=== PATIENT | female | born 1965 | race Caucasian/White ===

== ENCOUNTER 2019-03-16 13:48 | Day surgery (SDC) | payer OTHER ==
[~2019-03-16] VITALS: Ht 154.9 cm; Wt 138.2 kg
[~2019-03-16 13:48] MED LIST: LIDOCAINE/PF 2% 5 ML VIAL INJ ONE; PROPOFOL 1% 20 ML VIAL IVP ONE; SODIUM CHLORIDE 0.9% 1,000 ML IV ONE
== END 2019-03-16 16:45 | disposition home or self-care (01) ==
LOC: SURGERY 13:48
PROVIDERS: ATTEND Internal Medicine Gastroenterology
DX: Z12.11 Encounter for screening for malignant neoplasm of colon (principal); D12.5 Benign neoplasm of sigmoid colon; D12.2 Benign neoplasm of ascending colon; K57.30 Diverticulosis of large intestine without perforation or abscess without bleeding; K64.0 First degree hemorrhoids; E66.01 Morbid (severe) obesity due to excess calories; Z68.43 Body mass index [BMI] 50.0-59.9, adult; E03.9 Hypothyroidism, unspecified; Z79.899 Other long term (current) drug therapy; Z80.0 Family history of malignant neoplasm of digestive organs
CPT/HCPCS: 45385; 88305; C1769; J2704; J3490; J7030

== ENCOUNTER 2022-03-10 16:54 | Emergency (ER) | payer OTHER ==
[~2022-03-10] VITALS: Ht 160 cm; Wt 84.5 kg
[2022-03-10] MEDS ORDERED: KETOROLAC TROMETHAMINE 30 MG/ML VIAL IM ONE (19:00)
[2022-03-10 21:30] VITALS: BP 129/74
== END 2022-03-10 23:08 | disposition home or self-care (01) ==
LOC: EMS 16:55
DX: M79.621 Pain in right upper arm (principal); R07.89 Other chest pain; Z98.890 Other specified postprocedural states
CPT/HCPCS: 99284; 71045; 73060; 96372; J1885